=== PATIENT | male | born 1955 | race Caucasian/White ===

== ENCOUNTER → 2023-12-23 12:54 | Outpatient (REF) | payer MEDICARE, OTHER, SELFPAY | LOC: HWRCS 12:54 | PROVIDERS: ATTENDING PHYSICIAN Internal Medicine Cardiovascular Disease; FAMILY PHYSICIAN Internal Medicine | DX: I35.0 Nonrheumatic aortic (valve) stenosis (principal); I25.10 Atherosclerotic heart disease of native coronary artery without angina pectoris; I77.819 Aortic ectasia, unspecified site | CPT/HCPCS: 93306 ==

== ENCOUNTER → 2025-07-07 07:10 | Outpatient (REF) | payer MEDICARE, OTHER, SELFPAY | LOC: HWRCS 07:10 | PROVIDERS: ATTENDING PHYSICIAN Physician Assistant Medical; FAMILY PHYSICIAN Internal Medicine | DX: I35.0 Nonrheumatic aortic (valve) stenosis (principal); I25.84 Coronary atherosclerosis due to calcified coronary lesion; I77.819 Aortic ectasia, unspecified site | CPT/HCPCS: 93306 ==

== ENCOUNTER 2025-07-16 09:49 | Day surgery (SDC) | payer MEDICARE, OTHER, SELFPAY ==
[2025-07-16] VITALS (8 sets, daily range): BP systolic 111–142; BP diastolic 67–79; BMI 31.9
--- NOTE | 2025-07-16 07:46 | ITS.CL.CATH ---
Services Mgr - Catheterization
Cardiac Catheterization
Procedure Report:
LEFT AND RIGHT HEART CATHETERIZATION
Date of Procedure: July 16, 2025
Referring: Patricia Cornejo PA-C and Abigail Douglass MD
PROCEDURES:
1. Left heart catheterization, coronary angiogram.
2. Moderate sedation.
INDICATION: Severe symptomatic aortic stenosis with peak and mean transaortic gradients of 69 and 41 mmHg with aortic valve area of 0.9 cm� and moderate aortic regurgitation based on echocardiogram from July 07, 2025, being considered for TAVR
versus SAVR
ACCESS: Right radial artery, 6Fr. sheath, under US guidance.
HEMODYNAMICS : (mmHg)
AO (s/d) : 105/73
LVEDP : 18
Mean invasive transaortic gradient of 45mmHG, consistent with severe aortic stenosis.
CORONARY FINDINGS
Dominance: Right
Left Main Trunk (LMT): Large caliber vessel that gives rise to the LAD and LCx branches and is free of angiographic disease.
Left Anterior Descending Artery (LAD): Large caliber vessel that gives off 2 major diagonal branches as it courses along the anterior inter-ventricular groove before wrapping around the cardiac apex. Minimal luminal irregularities
Left Circumflex Artery (LCx): Large caliber dominant vessel that gives off 2 major obtuse marginal (OM) branches as it courses along the atrio-ventricular (AV) groove. Minimal luminal irregularities.
Right Coronary Artery (RCA): Small caliber non-dominant vessel.. Minimal luminal irregularities.
SEDATION:21 minutes of procedural sedation was utilized. IV Midazolam and IV Fentanyl were administered. An independent medical collector was present to assist with and help manage the patient's level of consciousness and physiologic status.
RADIATION SUMMARY: Fluoro Time (min): 1.8, Dose (mGy): 260, DAP (Gy.cm2) : 19
Closure Device: There were no immediate intra-procedural complications. The sheath was pulled in the forestry laborer and a vascular-band applied to the right wrist for radial artery hemostasis using the patent hemostasis technique.
CONCLUSIONS
1. No obstructive CAD.
2. Mean invasive transaortic gradient of 45mmHG, consistent with severe aortic stenosis.
RECOMMENDATIONS
1. Wean radial band per protocol. Monitor right hand perfusion and for bleeding from the radial site following removal of the vascular-band following trans-radial access.
2. Continue aggressive medical therapy and risk factor modification for secondary CAD prevention.
3. Hydrate with normal saline to mitigate the risk of contrast-induced acute kidney injury.
4. Continue with TAVR vs SAVR workup with CTA chest, abd and pelvis per TAVR protocol and CT surgery consult with discussion at strutural meeting afterwards.
Kierra Maria MD, FACC, [facility]
copy: Patricia Cornejo PA-C and Abigail Douglass MD
[2025-07-16 10:33] LABS: Hematocrit 44.6 % (39.0-52.0); Hemoglobin 14.6 g/dL (13.0-18.0); Mean Corp Hgb Conc. 32.7 g/dL (33.0-37.0); Mean Corpuscular Volume 87.1 fL (80.0-94.0); Platelet Count 189 10^3/uL (130-400); Red Cell Dist. Width 11.9 % (11.5-14.5)
[2025-07-16] MEDS: NSS 324 ML IV (10:41)
[2025-07-16] MEDS: LOW STRENGTH ASPIRIN 81 MG PO (10:42)
[2025-07-16 10:58] LABS: ALT (SGPT) 29 U/L (0-50); AST (SGOT) 34 U/L (17-59); Albumin 4.4 g/dl (3.5-5.0); Alkaline Phosphatase 51 U/L (38-126); Blood Urea Nitrogen 23 mg/dl (9-20); Calcium 9.6 mg/dl (8.4-10.2); Carbon Dioxide 31 mmol/L (22-30); Chloride 102 mmol/L (98-107); Estimated Creatinine Clearance 73 ml/min; Glucose 87 mg/dl (70-99); Potassium 4.7 mmol/L (3.5-5.1); Sodium 136 mmol/L (135-145); Total Protein 7.0 g/dl (6.3-8.2); eGFR > 60.00
== END 2025-07-16 15:46 | disposition home or self-care (01) ==
LOC: CATH 09:49
PROVIDERS: ATTENDING PHYSICIAN Internal Medicine Interventional Cardiology; FAMILY PHYSICIAN Internal Medicine; OTHER PHYSICIAN Internal Medicine Cardiovascular Disease
DX: I35.2 Nonrheumatic aortic (valve) stenosis with insufficiency (principal); I10 Essential (primary) hypertension; E78.5 Hyperlipidemia, unspecified; Z79.82 Long term (current) use of aspirin; Z79.899 Other long term (current) drug therapy
CPT/HCPCS: 99152; 80053; 85027; 93458; C1769; C1894; Q9967

== ENCOUNTER → 2025-07-28 09:20 | Outpatient (REF) | payer MEDICARE, OTHER, SELFPAY | LOC: RAD 09:20 | PROVIDERS: ATTENDING PHYSICIAN Nurse Practitioner Adult Health; FAMILY PHYSICIAN Internal Medicine | DX: I35.0 Nonrheumatic aortic (valve) stenosis (principal) | CPT/HCPCS: 74174; 75572; Q9967 ==